=== PATIENT | female | born 1945 | race Caucasian/White ===

== ENCOUNTER 2018-07-11 13:09 | Emergency (ER) | payer OTHER ==
[~2018-07-11] VITALS: Ht 170.2 cm; Wt 81.6 kg
[2018-07-11 13:12] VITALS: BP 154/89
--- NOTE | 2018-07-11 13:26 | NUR ---
PT AMBULATED TO BED 6
--- NOTE | 2018-07-11 13:30 | NUR ---
73Y/F BIB SON WITH C/O SOB, DIZZINESS X1 WEEK, - BLURRY VISION, DENIES CHEST PAIN, PT IS AAOX4, VSS, SKIN INTACT, BED DOWN, LOW, LOCKED, BEDRAIL UP X 1, ER MD AWARE AND NOTIFIED OF PT STATUS. HX OF DM, ON WARFARIN, BS 332 MG/DL
--- NOTE | 2018-07-11 14:05 | NUR ---
Patient being evaluated by physician at bedside.
--- NOTE | 2018-07-11 14:22 | NUR ---
LAB AT BEDSIDE
--- NOTE | 2018-07-11 14:25 | NUR ---
PT TAKEN TO X-RAY
--- NOTE | 2018-07-11 14:25 | NUR ---
Haseeb godinez in [facility] - 07/11/18 at 1712 by FLAVIO PT BACK FROM X-RAY
--- NOTE | 2018-07-11 14:30 | NUR ---
PT BACK FROM X-RAY
[2018-07-11 14:32] LABS: BASOPHILS # (AUTO) 0.1 K/uL (0.00-0.22); BASOPHILS % (AUTO) 1.3 % (0.0-2.0); EOSINOPHILS # (AUTO) 0.1 K/uL (0-0.4); HEMATOCRIT 41.3 % (36-48); HEMOGLOBIN 13.5 g/dL (12.0-16.0); LYMPHOCYTES # (AUTO) 1.7 K/uL (2.5-16.5); LYMPHOCYTES % (AUTO) 28.4 % (20.5-51.1); MEAN CORPUSCULAR HEMOGLOBIN 27 pg (27-31); MEAN CORPUSCULAR HGB CONC 33 g/dL (33-37); MEAN CORPUSCULAR VOLUME 83.6 fL (80-94); MONOCYTES # (AUTO) 0.6 K/uL (0.8-1.0); MONOCYTES % (AUTO) 10.3 % (1.7-9.3); NEUTROPHILS # (AUTO) 3.6 K/uL (1.8-7.7); PLATELET COUNT (AUTO) 262 K/uL (140-450); RED BLOOD CELL COUNT(AUTO) 4.93 MIL/uL (4.20-5.40); RED CELL DISTRIBUTION WIDTH 14.2 % (11.6-13.7); WHITE BLOOD COUNT (AUTO) 6.1 K/uL (4.8-10.8)
[2018-07-11 14:59] LABS: PROTHROMBIN TIME 17.8 secs (10.8-13.4)
[2018-07-11 15:04] LABS: ANION GAP 15.8 (8-16); CARBON DIOXIDE 23.9 mmol/L (21-32); CHLORIDE 102 mmol/L (98-107); CREATININE 0.9 mg/dL (0.6-1.3); GLUCOSE 253 mg/dL (74-106); POTASSIUM 3.7 mmol/L (3.5-5.1); SODIUM SERUM 138 mmol/L (136-145); UREA NITROGEN, BLOOD 12 mg/dL (7-18)
[2018-07-11 15:13] LABS: ALBUMIN 3.5 g/dL (3.4-5.0); ASPARTATE AMINOTRANSFERASE 21 U/L (15-37); TOTAL BILIRUBIN 0.4 mg/dL (0.0-1.0)
--- NOTE | 2018-07-11 16:14 | NUR ---
PT TAKEN TO CT
--- NOTE | 2018-07-11 16:24 | NUR ---
PT BACK FROM CT
--- NOTE | 2018-07-11 19:11 | NUR ---
ASSUMED CARE OF PT FROM FREDRICK ARMENTA.
--- NOTE | 2018-07-11 20:44 | NUR ---
Patient to be transferred to [place]. Is being transferred due to CONTINUTY OF CARE. Receiving facility has accepting physician and available space. ER physician has signed transfer form. Patient or responsible republican has agreed to transfer and signed form. Patient belongings inventoried and will be sent with patient. Copy of nursing notes, lab reports, EKG, Physicians Orders and X-rays to be sent with patient. Report called to FREDRICK CHINO at receiving facility. [facility] ambulance service has been called for transfer.
--- NOTE | 2018-07-11 21:19 | NUR ---
[facility] TRANSPORT AT BEDSIDE
[2018-07-11 21:25] VITALS: BP 151/86
--- NOTE | 2018-07-11 21:25 | NUR ---
REPORT GIVEN TO [facility] FOR TRANSFER.
--- NOTE | 2018-07-11 21:30 | NUR ---
PT TAKEN BY [facility] TO [facility] ROOM [address]
== END 2018-07-11 21:30 | disposition short-term general hospital (02) ==
LOC: MED 13:09
DX: R06.02 Shortness of breath (principal); R42 Dizziness and giddiness; R53.1 Weakness; E11.9 Type 2 diabetes mellitus without complications; I10 Essential (primary) hypertension
CPT/HCPCS: 36415; 71045; 71250; 80053; 82948; 83880; 84484; 85025; 85610; 85730; 93005; 99285; Q0092; 99284